=== PATIENT | female | born 1995 | race African-American/Black ===

== ENCOUNTER 2019-03-29 10:20 | Emergency (ER) | payer MEDICAID ==
[~2019-03-29] VITALS: Ht 180.3 cm; Wt 70.8 kg
[2019-03-29 10:24] VITALS: BP 130/78; Ht 180.3 cm; Wt 70.8 kg
== END 2019-03-29 11:39 | disposition home or self-care (01) ==
LOC: ED 10:20
DX: S30.0XXA Contusion of lower back and pelvis, initial encounter (principal); W31.9XXA Contact with unspecified machinery, initial encounter; Y93.89 Activity, other specified; Y92.89 Other specified places as the place of occurrence of the external cause; Y99.8 Other external cause status